=== PATIENT | male | born 1990 | race American Indian/Alaskan Native ===

== ENCOUNTER 2020-12-25 05:19 | Emergency (ER) | payer SELFPAY ==
--- NOTE | 2020-12-25 05:27 | Emergency Department Report ---
Blank Doc - Documentation Documentation: 30-year-old male that presents with abdominal pain and nausea. 1- This initial assessment/diagnostic orders/clinical plan/ treatment(s) is/are subject to change based on pt's health status, clinical progression and re- assessment by fellow clinical providers in the ED. Further treatment and workup at subsequent clinical provers discretion. Patient/guardians urged not to elope from ED as their condition may be serious if not clinically assessed and managed. 2-labs 3-ua
[2020-12-25 05:44] LABS: Basophils % (Auto) 0.6 % (0.0-1.8); Eosinophils # (Auto) 0.1 K/mm3 (0.0-0.4); Eosinophils % (Auto) 2.4 % (0.0-4.3); Hematocrit 40.8 % (35.5-45.6); Hemoglobin 14.3 gm/dl (11.8-15.2); Lymphocytes # (Auto) 2.8 K/mm3 (1.2-5.4); Lymphocytes % (Auto) 54.2 % (13.4-35.0); Mean Corpuscular HGB Conc 35 % (32-34); Mean Corpuscular Volume 91 fl (84-94); Monocytes # (Auto) 0.3 K/mm3 (0.0-0.8); Monocytes % (Auto) 6.2 % (0.0-7.3); Platelet Count 154 K/mm3 (140-440); Red Blood Count 4.47 M/mm3 (3.65-5.03); Red Cell Distribution Width 13.7 % (13.2-15.2)
[2020-12-25 06:12] LABS: Alanine Aminotransferase 15 units/L (7-56); Albumin 4.5 g/dL (3.9-5); BUN/Creatinine Ratio 9; Blood Urea Nitrogen 9 mg/dL (9-20); Calcium 9.1 mg/dL (8.4-10.2); Hemolysis Index 7
[2020-12-25 06:52] LABS: Bilirubin,Urine NEG (Negative); Blood,Urine NEG (Negative); Color,Urine Amber (Yellow); Mucus,Urine 2+ /HPF
[2020-12-25 06:54] LABS: WBC,Urine > 182.0 /HPF (0.0-6.0)
[2020-12-25] MEDS ORDERED: LIDOCAINE-MPF (1%) 10 MG/1 ML VIAL 5 ML INFILTRATI ONE (07:06)
--- NOTE | 2020-12-25 07:09 | Emergency Department Report ---
ED Abdominal Pain HPI - General Chief Complaint: Abdominal Pain Stated Complaint: STOMACH PAIN Time Seen by Provider: 12/25/20 05:26 Source: patient Mode of arrival: Ambulatory Limitations: No Limitations - History of Present Illness Initial Comments: 30-year-old male presents to ED with 3-day history of abdominal cramping. Patient reports associated dysuria and urethral discharge. He denies any fever, vomiting, urinary frequency, back pain. MD Complaint: abdominal pain -: days(s) (3) Location: suprapubic Radiation: none Migration to: no migration Severity scale (0 -10): 3 Quality: cramping Consistency: intermittent Improves With: nothing Worsens With: nothing Associated Symptoms: dysuria. denies: nausea, vomiting, diarrhea, fever - Related Data Previous Rx's Medication Instructions Recorded Last Taken Type Cyclobenzaprine HCl [Flexeril] 10 mg PO TID PRN #15 tablet 11/11/13 Unknown Rx HYDROcodone/APAP 5-325 [Bruni 1 each PO Q8HR PRN #10 tablet 11/11/13 Unknown Rx 5-325 mg TAB] Doxycycline Monohydrate 100 mg PO BID 7 Days #14 capsule 12/25/20 Unknown Rx [Doxycycline Monohydrate CAP] Sulfamethoxazole/Trimethoprim 1 each PO BID #6 tablet 12/25/20 Unknown Rx [Bactrim DS TAB] Allergies Allergy/AdvReac Type Severity Reaction Status Date / Time No Known Allergies Allergy Verified 12/25/20 05:25 ED Review of Systems ROS: Stated complaint: STOMACH PAIN Other details as noted in HPI Comment: All other systems reviewed and negative Constitutional: denies: chills, fever Gastrointestinal: abdominal pain. denies: vomiting, diarrhea Genitourinary: dysuria, discharge ED Past Medical Hx - Past Medical History Previous Medical History?: No - Surgical History Past Surgical History?: No - Social History Smoking Status: Current Every Day Smoker - Medications Home Medications: Home Medications Medication Instructions Recorded Confirmed Last Taken Type Cyclobenzaprine HCl [Flexeril] 10 mg PO TID PRN #15 tablet 11/11/13 Unknown Rx HYDROcodone/APAP 5-325 [Bruni 1 each PO Q8HR PRN #10 tablet 11/11/13 Unknown Rx 5-325 mg TAB] Doxycycline Monohydrate 100 mg PO BID 7 Days #14 capsule 12/25/20 Unknown Rx [Doxycycline Monohydrate CAP] Sulfamethoxazole/Trimethoprim 1 each PO BID #6 tablet 12/25/20 Unknown Rx [Bactrim DS TAB] ED Physical Exam - General Limitations: No Limitations General appearance: alert, in no apparent distress - Head Head exam: Present: atraumatic, normocephalic - Eye Eye exam: Present: normal appearance, EOMI - ENT ENT exam: Present: mucous membranes moist - Neck Neck exam: Present: normal inspection - Respiratory Respiratory exam: Present: normal lung sounds bilaterally. Absent: respiratory distress - Cardiovascular Cardiovascular Exam: Present: regular rate, normal rhythm - GI/Abdominal GI/Abdominal exam: Present: soft. Absent: distended, tenderness - Extremities Exam Extremities exam: Present: normal inspection - Back Exam Back exam: Present: normal inspection. Absent: CVA tenderness (R), CVA tenderness (L) - Neurological Exam Neurological exam: Present: alert, oriented X3 - Psychiatric Psychiatric exam: Present: normal affect, normal mood - Skin Skin exam: Present: warm, dry, intact, normal color ED Course Vital Signs 12/25/20 12/25/20 05:24 06:31 Temperature 97.8 F Pulse Rate 79 68 Respiratory 17 16 Rate Blood Pressure 125/102 Blood Pressure 124/74 [Right] O2 Sat by Pulse 96 99 Oximetry ED Medical Decision Making - Lab Data Result diagrams: 12/25/20 05:29 12/25/20 05:29 Critical care attestation.: If time is entered above; I have spent that time in minutes in the direct care of this critically ill patient, excluding procedure time. ED Disposition Clinical Impression: UTI (urinary tract infection), Urethritis Disposition: - TO HOME OR SELFCARE Is pt being admited?: No Condition: Stable Instructions: Urinary Tract Infection, Adult, [id number], Urethritis, Adult Prescriptions: Sulfamethoxazole/Trimethoprim [Bactrim DS TAB] 1 each PO BID #6 tablet Doxycycline Monohydrate [Doxycycline Monohydrate CAP] 100 mg PO BID 7 Days #14 capsule Referrals: PRIMARY CARE, [Primary Care Provider] - 3-5 Days [facility] [Outside] - 3-5 Days [facility] [Provider Group] - 3-5 Days Forms: STI Treatment and Prevention Time of Disposition: 07:10
[2020-12-25 07:30] VITALS: BP 130/68
== END 2020-12-25 07:48 | disposition home or self-care (01) ==
LOC: ED 05:19
DX: N39.0 Urinary tract infection, site not specified (principal); F17.200 Nicotine dependence, unspecified, uncomplicated; Z79.899 Other long term (current) drug therapy
CPT/HCPCS: 36415; 80053; 81001; 83690; 85025; 96372; 99283; J0696

== ENCOUNTER 2022-08-02 04:57 | Emergency (ER) | payer SELFPAY ==
[2022-08-02] MEDS ORDERED: LIDOCAINE-MPF (1%) 10 MG/1 ML VIAL 5 ML INFILTRATI ONE (10:18)
--- NOTE | 2022-08-02 10:18 | Emergency Department Report ---
ED General Adult HPI - General Chief complaint: Sore Throat Stated complaint: PAIN IN THROAT Source: patient Mode of arrival: Ambulatory Limitations: No Limitations - History of Present Illness Initial comments: 31-year-old male presents to the ED complaining of sore throat x1 day. Patient states that he was told by his partner that she had chlamydia. He states that he is concerned that he gave oral sex and may have chlamydia. Patient denies any fever chills nausea vomiting. Denies any penile discharge Denies any difficult swallowing or painful swallowing. Patient is alert and oriented x3. No acute distress noted. No ill appearance noted. Onset/Timin -: week(s) Severity scale (0 -10): 5 Associated Symptoms: denies other symptoms - Related Data Previous Rx's Medication Instructions Recorded Last Taken Type Cyclobenzaprine HCl [Flexeril] 10 mg PO TID PRN #15 tablet 11/11/13 Unknown Rx HYDROcodone/APAP 5-325 [Ottosen 1 each PO Q8HR PRN #10 tablet 11/11/13 Unknown Rx 5-325 mg TAB] Doxycycline Monohydrate 100 mg PO BID 7 Days #14 capsule 12/25/20 Unknown Rx [Doxycycline Monohydrate CAP] Sulfamethoxazole/Trimethoprim 1 each PO BID #6 tablet 12/25/20 Unknown Rx [Bactrim DS TAB] Doxycycline Hyclate [Doxycycline 100 mg PO Q12HR 10 Days #20 tab 08/02/22 Unknown Rx Hyclate TAB] Allergies Allergy/AdvReac Type Severity Reaction Status Date / Time No Known Allergies Allergy Verified 12/25/20 05:25 ED Review of Systems ROS: Stated complaint: PAIN IN THROAT Other details as noted in HPI Constitutional: denies: chills, fever Eyes: denies: eye pain, eye discharge, vision change ENT: denies: ear pain, throat pain Respiratory: denies: cough, shortness of breath, wheezing Cardiovascular: denies: chest pain, palpitations Endocrine: no symptoms reported Gastrointestinal: denies: abdominal pain, nausea, diarrhea Genitourinary: denies: urgency, dysuria Musculoskeletal: denies: back pain, joint swelling, arthralgia Skin: denies: rash, lesions Neurological: denies: headache, weakness, paresthesias Psychiatric: denies: anxiety, depression Hematological/Lymphatic: denies: easy bleeding, easy bruising ED Past Medical Hx - Past Medical History Previous Medical History?: Yes - Surgical History Past Surgical History?: Yes - Social History Smoking Status: Current Every Day Smoker - Medications Home Medications: Home Medications Medication Instructions Recorded Confirmed Last Taken Type Cyclobenzaprine HCl [Flexeril] 10 mg PO TID PRN #15 tablet 11/11/13 Unknown Rx HYDROcodone/APAP 5-325 [Ottosen 1 each PO Q8HR PRN #10 tablet 11/11/13 Unknown Rx 5-325 mg TAB] Doxycycline Monohydrate 100 mg PO BID 7 Days #14 capsule 12/25/20 Unknown Rx [Doxycycline Monohydrate CAP] Sulfamethoxazole/Trimethoprim 1 each PO BID #6 tablet 12/25/20 Unknown Rx [Bactrim DS TAB] Doxycycline Hyclate [Doxycycline 100 mg PO Q12HR 10 Days #20 tab 08/02/22 Unknown Rx Hyclate TAB] ED Physical Exam - General Limitations: No Limitations General appearance: alert, in no apparent distress - Head Head exam: Present: atraumatic, normocephalic - Eye Eye exam: Present: normal appearance - ENT ENT exam: Present: mucous membranes moist - Neck Neck exam: Present: normal inspection - Respiratory Respiratory exam: Present: normal lung sounds bilaterally. Absent: respiratory distress - Cardiovascular Cardiovascular Exam: Present: regular rate, normal rhythm. Absent: systolic murmur, diastolic murmur, rubs, gallop - GI/Abdominal GI/Abdominal exam: Present: soft, normal bowel sounds - Rectal Rectal exam: Present: deferred - Extremities Exam Extremities exam: Present: normal inspection - Back Exam Back exam: Present: normal inspection - Neurological Exam Neurological exam: Present: alert, oriented X3 - Psychiatric Psychiatric exam: Present: normal affect, normal mood - Skin Skin exam: Present: warm, dry, intact, normal color. Absent: rash ED Course Vital Signs 08/02/22 05:00 Temperature 97.5 F L Pulse Rate 61 Respiratory 18 Rate Blood Pressure 124/84 O2 Sat by Pulse 98 Oximetry ED Medical Decision Making - Medical Decision Making 31-year-old male presents to the ED complaining of sore throat x1 day. Patient states that he was told by his partner that she had chlamydia. He states that he is concerned that he gave oral sex and may have chlamydia. Patient denies any fever chills nausea vomiting. Denies any penile discharge Denies any difficult swallowing or painful swallowing. Patient is alert and oriented x3. No acute distress noted. No ill appearance noted. Rechecked the patient is resting quietly , comfortable and feeling better. I discussed the results of diagnostic study, my clinical impression and the plan for further treatment with the patient. Patient agrees with plan and discharge at this present time. All question addressed. I have given the patient instruction regarding a diagnosis ,expectation ,follow- up and return precaution. I explained to the patient that emergent condition may arise and to return to the ED for new worsen and any new persisting condition. I have explained the importance of following up with the primary care physician or referral physician listed below has instructed. The patient verbalized understanding of discharge instruction. Critical care attestation.: If time is entered above; I have spent that time in minutes in the direct care of this critically ill patient, excluding procedure time. ED Disposition Clinical Impression: Exposure to STD Disposition: 01 HOME / SELF CARE / HOMELESS Is pt being admited?: No Does the pt Need Aspirin: No Condition: Stable Instructions: Safe Sex, Chlamydia, Male, Preventing Sexually Transmitted Infections, Adult Additional Instructions: Take medication as prescribed Return to ED for any worsening symptom Prescriptions: Doxycycline Hyclate [Doxycycline Hyclate TAB] 100 mg PO Q12HR 10 Days #20 tab Referrals: [facility] [Outside] - 3-5 Days Forms: Work/School Release Form(ED) Time of Disposition: 10:28
[2022-08-02 15:55] VITALS: BP 128/74
== END 2022-08-02 11:48 | disposition home or self-care (01) ==
LOC: ED 04:57
DX: Z20.2 Contact with and (suspected) exposure to infections with a predominantly sexual mode of transmission (principal); J02.9 Acute pharyngitis, unspecified; F17.200 Nicotine dependence, unspecified, uncomplicated; Z98.890 Other specified postprocedural states; Z79.899 Other long term (current) drug therapy
CPT/HCPCS: 96372; 99282; J0696; J3490